=== PATIENT | female | born 1940 | race Caucasian/White ===

== ENCOUNTER 2018-03-06 16:52 | Emergency (ER) | payer OTHER ==
[~2018-03-06] VITALS: Ht 154.9 cm; Wt 58.1 kg
[~2018-03-06 16:52] MED LIST: COREG CR10 MG; NIFE60TA3
== END 2018-03-06 20:16 | disposition home or self-care (01) ==
LOC: ER 16:52
DX: S90.02XA Contusion of left ankle, initial encounter (principal); S80.02XA Contusion of left knee, initial encounter; S80.12XA Contusion of left lower leg, initial encounter; V49.9XXA Car occupant (driver) (passenger) injured in unspecified traffic accident, initial encounter; Y93.89 Activity, other specified; Y92.488 Other paved roadways as the place of occurrence of the external cause; Y99.8 Other external cause status

== ENCOUNTER 2018-08-19 15:39 | Outpatient (CLI) | payer OTHER | END 2018-08-19 16:00 | disposition home or self-care (01) | LOC: RAD 15:39 | DX: I50.22 Chronic systolic (congestive) heart failure (principal); I11.9 Hypertensive heart disease without heart failure ==

== ENCOUNTER 2018-09-24 10:48 | Emergency (ER) | payer OTHER ==
[~2018-09-24] VITALS: Ht 154.9 cm; Wt 56.7 kg
[2018-09-24] MEDS ORDERED: NORVASC2.5 M1 (11:33)
== END 2018-09-24 14:46 | disposition home or self-care (01) ==
LOC: ER 10:48 → CPU-OBS 11:06 → ER 14:46
DX: R07.89 Other chest pain (principal)
CPT/HCPCS: G0378; G0379; 93005

== ENCOUNTER → 2019-01-24 | Outpatient (CLI) | payer OTHER ==
[~2019-01-24] MED LIST changes: +NORVASC2.5 M1
== END | disposition home or self-care (01) ==
LOC: RAD 16:50
DX: J30.89 Other allergic rhinitis (principal)

== ENCOUNTER 2019-12-02 12:56 | Emergency (ER) | payer OTHER ==
[~2019-12-02] VITALS: Ht 154.9 cm; Wt 57.2 kg
[2019-12-02] MEDS ORDERED: LASIX20 MG PO (13:13)
[2019-12-02] MEDS ORDERED: CARVEDILOL ER10 MG PO (13:15)
== END 2019-12-02 21:34 | disposition home or self-care (01) ==
LOC: ER 12:56
DX: R41.3 Other amnesia (principal); R60.0 Localized edema; R53.81 Other malaise

== ENCOUNTER 2022-10-05 03:05 | Inpatient (IN) | payer OTHER ==
[~2022-10-05] VITALS: Ht 154.9 cm; Wt 58.1 kg
[~2022-10-05 03:05] MED LIST changes: +CARVEDILOL ER10 MG PO; +LASIX20 MG PO
--- NOTE | 2022-10-05 03:17 | NUR ---
PACIENTE ALERTA Y ORIENTADA X3. REFIERE VENIR POR DIFICULTAD RESPIRATORIA DESDE HACE DOS HORAS, EDEMA EN PIERNAS Y TOS SECA. SE RECIBE PACIENTE EN AMBULANCIA CON CANULA NASAL A 3 LITROS. SE UBICA EN AREA DE CRITICO PARA EVALUACION MEDICA.
--- NOTE | 2022-10-05 03:50 | NUR ---
SE RECIBE PTE FEMENINA ALERTA Y ORIENTADA EN LAS MARIEL ESFERAS EN AMBULANCIA EN COMPANIA DE PARAMEDICOS. SE UBICA PTE EN CAMA #3 DE UNIDAD DE CRITICO, SE CONECTA A MONITOR CARDIACO Y OXIMETRIA DE PULSO CONTINUA. EVALUADA POR ; SE ORIENTA SOBRE ORDENES DE TX REFIERE COMPRENDER. SE COLECTAN MUESTRAS DE LABORATORIOS Y SE CANALIZA VENA BAJO MEDIDAS ASEPTICAS. SE NOTIFICAN ABGS A STEFANY. SE REALIZA EKG Y SE PRESENTA A MD DE TURNO. SE NOTIFICAN XRAY PENDIENTE A PERSONAL DE RADIOLOGIA. SE REEMA COMODIDAD Y SE MANTIENE BAJO OBSERVACION POR CAMBIOS.
--- NOTE | 2022-10-05 07:24 | NUR ---
SE RECIBE PTE EN EL AREA DE CRITICO DE DEMETRA DE EMERFENCIA EN EL CUBICULO #2 EN CAMA CON BARANDAS ELEVADA Y TIMBRE ACCESIBLE, PTE ALERTA Y ORIENTADA POR 3 CONECTADA A MONITOR CARDIACO Y OXYMETRIA DE PULSO, SE OBSERVA VENOPUNCION PATENTE Y BRADLEY DE EDEMA, PTE CON JOINER DRENADO ORINADA DE COLOR AMARILLO PTE SE MANTIENE EN OBSERVACION Y BAJO TRATAMIENTO. SE OBSERVA RESPIRANDO CON CANULA @3LT.
--- NOTE | 2022-10-05 15:10 | NUR ---
PTE ALERTA Y ORIENTADO POR MARIEL ESFERAS CON BUEN PATRON RESPIRATORIO. ESTA CONECTADA AL MONITOR CARDIACO, NBP Y OXIMETRIA CONTINUA. TIENE CANALIZACION PATENTE BRADLEY DE EDEMA Y ERITEMA. TIENE JOINER A GRAVEDAD CON ORINA ANILILLA
--- NOTE | 2022-10-05 15:13 | NUR ---
PENDIENTE CONSULTA CON DR.MUNOZ OCHOA
[2022-10-06] MEDS ORDERED: CARVEDILOL25 M1 (15:19)
[2022-10-06] MEDS ORDERED: DILTIAZEM ER120 M2 (15:20)
[2022-10-15] MEDS ORDERED: LIPITOR20 MG PO (10:48)
[2022-10-15] MEDS ORDERED: BUMETANIDE1 MG PO (10:48)
[2022-10-15] MEDS ORDERED: ELIQUIS2.5 MG PO (10:48)
[2022-10-15] MEDS ORDERED: NORVASC2.5 M1 PO (10:48)
[2022-10-15] MEDS ORDERED: POTASSIUM20 MEQ/15 PO (10:48)
[2022-10-15] MEDS ORDERED: LISINOPRIL5 MG PO (10:48)
[2022-10-15] MEDS ORDERED: CARVEDILOL12.5 MG PO (10:48)
[2022-10-15] MEDS ORDERED: PROTEINEX-18 LI30 ML PO (10:48)
[2022-10-15] MEDS ORDERED: SPIRONOLACTONE25 MG PO (10:48)
== END 2022-10-15 18:02 | disposition home or self-care (01) | DRG 291 ==
LOC: ER 03:05 → MEDI 18:32
PROVIDERS: ADMIT Internal Medicine; ATTEND Internal Medicine
PROC: 4A12X4Z Monitoring of Cardiac Electrical Activity, External Approach (ICD-10-PCS; principal; 2022-10-05)
PROC: B24BYZZ Ultrasonography of Heart with Aorta using Other Contrast (ICD-10-PCS; 2022-10-05)
DX: I13.0 Hypertensive heart and chronic kidney disease with heart failure and stage 1 through stage 4 chronic kidney disease, or unspecified chronic kidney disease (principal); I50.23 Acute on chronic systolic (congestive) heart failure; I50.1 Left ventricular failure, unspecified; N17.9 Acute kidney failure, unspecified; N18.2 Chronic kidney disease, stage 2 (mild); I27.22 Pulmonary hypertension due to left heart disease; I34.0 Nonrheumatic mitral (valve) insufficiency; R60.1 Generalized edema; I48.91 Unspecified atrial fibrillation; E87.6 Hypokalemia; E83.42 Hypomagnesemia

== ENCOUNTER 2023-01-21 12:01 | Outpatient (CLI) | payer OTHER ==
[~2023-01-21 12:01] MED LIST changes: +BUMETANIDE1 MG PO; +CARVEDILOL12.5 MG PO; +CARVEDILOL25 M1; +DILTIAZEM ER120 M2; +ELIQUIS2.5 MG PO; +LIPITOR20 MG PO; +LISINOPRIL5 MG PO; +NORVASC2.5 M1 PO; +POTASSIUM20 MEQ/15 PO; +PROTEINEX-18 LI30 ML PO; +SPIRONOLACTONE25 MG PO
== END 2023-01-21 12:06 | disposition home or self-care (01) ==
LOC: NUCLEAR 12:01
PROVIDERS: ATTEND Internal Medicine
DX: I50.20 Unspecified systolic (congestive) heart failure (principal)

== ENCOUNTER 2024-04-06 13:24 | Outpatient (CLI) | payer OTHER | END 2024-04-06 13:34 | disposition home or self-care (01) | LOC: MRI 13:24 | PROVIDERS: ATTEND Psychiatry & Neurology Neurology | DX: G40.209 Localization-related (focal) (partial) symptomatic epilepsy and epileptic syndromes with complex partial seizures, not intractable, without status epilepticus (principal) | CPT/HCPCS: 70551 ==

== ENCOUNTER 2024-10-03 10:08 | Inpatient (IN) | payer OTHER ==
[~2024-10-03] VITALS: Ht 154.9 cm; Wt 61.7 kg
[2024-10-03] MEDS ORDERED: BENZONATATE100 MG PO (10:35)
--- NOTE | 2024-10-03 10:38 | NUR ---
PTE ACOMPANADA POR LA ESPOSA DE GRAMAJO VALERA QUIEN REFIERE TENER DIFICULTAD RESPIRATORIA Y TOS, SE NIRMAL SV Y SE UBICA.
[2024-10-03] MEDS ORDERED: LEVALBUTEROL HCL 1.25 MG/3 ML SOLUTION IH STA (11:27)
[2024-10-03] MEDS ORDERED: METHYLPREDNISOLONE SOD SUCC 125 MG VIAL IV STA (11:27)
[2024-10-03] MEDS ORDERED: BUDESONIDE 0.5 MG/2 ML AMPUL.NEB IH STA (11:28)
[2024-10-03] MEDS ORDERED: METHYLPREDNISOLONE SOD SUCC 125 MG VIAL ONE (11:50)
[2024-10-03 12:38] LABS: HEMATOCRIT 41.4 % (36.0-45.00); HEMOGLOBIN 13.2 g/dL (12.0-15.00); MEAN CELL VOLUME 78.8 fL (80.00-100.00); MEAN CORPUSCULAR HEMOGLOBIN 25.1 pg (27.00-32.0); MEAN CORPUSCULAR HGB CONC 31.9 g/dl (32.0-36.0); PLATELET COUNT 226 K/uL (150-450); RED BLOOD COUNT 5.26 M/uL (4.00-6.00); RED CELL DISTRIBUTION WIDTH 17.9 % (11.5-14.5)
--- NOTE | 2024-10-03 12:40 | NUR ---
SE ORIENTA A PACIENTE SOBRE TRATAMIENTO MEDICO Y EL MISMO REFIERE ENTENDER Y ACEPTAR. SE PROCEDE A EXTRAER MUESTRAS DE LUIS, CANALIZAR Y ADMINISTRAR MEDICAMENTO AL PACIENTE SERA ORDEN MEDICA BAJO MEDIDAS ASEPTICAS. PACIENTE REUSO A REALIZARSE LA PRUEBA DE INFLUENZA.
--- NOTE | 2024-10-03 13:35 | NUR ---
SE LE REALIZA EKG A LA PACIENTE Y EL MISMO ES EVALUADO POR EL DR. ZAMORA.
[2024-10-03] MEDS ORDERED: IPRATROPIUM BROMIDE 0.5 MG/2.5 ML AMPUL.NEB IH ONE (14:07)
[2024-10-03] MEDS ORDERED: LEVALBUTEROL HCL 0.63 MG/3 ML SOLUTION IH ONE (14:07)
[2024-10-03 14:24] LABS: PH,URINE 5.5 (5.0-8.0); URINE APPEARANCE Clear; URINE BILIRRUBIN Small (NEGATIVE); URINE BLOOD Negative; URINE COLOR Dark Yellow; URINE GLUCOSE Negative (NEGATIVE); URINE KETONE Negative (NEGATIVE); URINE LEUKOCYTE Trace; URINE NITRATE Negative
[2024-10-03 14:28] LABS: URINE BACTERIA 86.8 uL (0.0-1933); URINE CAST 4.41 uL (0.0-1.40); URINE EPITHELIAL CELLS 35.3 uL (0.0-38.8); URINE RBC 22.9 uL (0.0-20.8); URINE WBC 20.8 uL (0.0-23.2)
[2024-10-03 14:46] LABS: URINE CRYSTALS MODERATE /HPF; URINE MUCUS SCANT; URINE PROTEIN 100 (NEGATIVE)
[2024-10-03] MEDS ORDERED: 0.9 % SODIUM CHLORIDE 1,000 ML IV STA (15:50)
[2024-10-03 16:50] LABS: ABG PH 7.444 (7.35-7.45); ABG PO2 76.7 mmHg (80-100); ABG pCO2 44.2 mmHg (35-45); BASE EXCESS 4.8 mmol/l; BICARBONATE 29.7 mmol/l (23-25); SaO2 95.9 %
[2024-10-03 17:18] LABS: allen test SATISFACTORY; mode ROOM AIR; puncture site RADIAL RIGHT
[2024-10-03 17:19] LABS: o2 21 %
[2024-10-03] MEDS ORDERED: IPRATROPIUM BROMIDE 0.5 MG/2.5 ML AMPUL.NEB IH SCH ×2 (18:45→19:46)
[2024-10-03] MEDS ORDERED: LEVALBUTEROL HCL 1.25 MG/3 ML SOLUTION IH SCH (18:45)
[2024-10-03] MEDS ORDERED: GUAIFEN/DEXTROMETHORPHAN/PE 10 ML BLIST.PACK PO ONE ×2 (18:45→18:57)
[2024-10-03] MEDS ORDERED: ACETAMINOPHEN 500 MG GEL..CAP PO PRN ×2 (18:45→20:00)
[2024-10-03] MEDS ORDERED: FUROsemide 20 MG/2 ML VIAL IV ONE (18:45)
--- NOTE | 2024-10-03 19:03 | NUR ---
SE ADMINISTRAN MEDICAMENTOS SERA ORDEN MEDICA Y SE NOTIFICAN TERAPIAS RESP A MR RICE.
[2024-10-03] MEDS ORDERED: ATORVASTATIN CALCIUM 40 MG TABLET PO SCH (19:48)
[2024-10-03 19:56] LABS: INR 1.1; PARTIAL THROMBOPLASTIN TIME 24.4 SECONDS (22.0-34.0); PROTHROMBIN TIME 11.9 SECONDS (9.0-11.5)
[2024-10-03] MEDS ORDERED: BENZONATATE 100 MG CAPSULE PO SCH (20:00)
[2024-10-03 20:01] LABS: ALBUMIN 3.5 gm/dL (3.4-5.0); BILIRUBIN TOTAL 2.19 mg/dL (0.3-1.2); CALCIUM 9.8 mg/dL (8.5-10.1); CREATININE SERUM 1.05 mg/dL (0.55-1.02); GFR 50.05; GLOBULINA 4.5 G/DL (2.4-3.5); POTASSIUM 4.07 mEq/L (3.5-5.1)
[2024-10-03] MEDS ORDERED: FUROsemide 20 MG/2 ML VIAL IV SCH (21:00)
[2024-10-03] MEDS ORDERED: ENOXAPARIN SODIUM 60 MG/0.6 ML SYRINGE SUBCUTANEO SCH (21:00)
[2024-10-03 22:22] VITALS: BP 145/81; O2SAT 96
[2024-10-03] MEDS ORDERED: BENZONATATE 100 MG CAPSULE PO ONE (22:33)
[2024-10-03] MEDS ORDERED: ENOXAPARIN SODIUM 60 MG/0.6 ML SYRINGE SUBCUTANEO ONE (22:34)
[2024-10-03] MEDS ORDERED: FUROsemide 20 MG/2 ML VIAL ONE (22:34)
[2024-10-04] VITALS (8 sets, daily range): BP systolic 136–160; BP diastolic 78–97; O2SAT 90–98
[2024-10-04 06:07] LABS: CHOL HDL RATIO 2.1 (0-5.0); TSH 0.587 uIU/mL (0.358-3.74)
[2024-10-04] MEDS ORDERED: FAMOTIDINE/PF 20 MG in 0.9 % SODIUM CHLORIDE 8 ML IV PUSH SCH (09:00)
[2024-10-04] MEDS ORDERED: CARVEDILOL 12.5 MG TABLET PO SCH (09:00)
[2024-10-04] MEDS ORDERED: METOPROLOL SUCCINATE 25 MG TAB.SR.24H PO SCH (09:00)
[2024-10-05] VITALS (7 sets, daily range): BP systolic 111–137; BP diastolic 66–85; O2SAT 20–100
[2024-10-05 06:49] LABS: HEMATOCRIT 39.1 % (36.0-45.00); HEMOGLOBIN 12.5 g/dL (12.0-15.00); MEAN CELL VOLUME 79.6 fL (80.00-100.00); MEAN CORPUSCULAR HEMOGLOBIN 25.4 pg (27.00-32.0); PLATELET COUNT 224 K/uL (150-450); RED BLOOD COUNT 4.92 M/uL (4.00-6.00); RED CELL DISTRIBUTION WIDTH 17.6 % (11.5-14.5)
[2024-10-05 07:28] LABS: ALBUMIN 2.8 gm/dL (3.4-5.0); BILIRUBIN TOTAL 1.44 mg/dL (0.3-1.2); BILIRUBIN,CONJUGATED 0.88 mg/dL (0.0-0.2); BILIRUBIN,UNCONJUGATED 0.56 mg/dL (0.0-0.6); TOTAL PROTEIN 6.3 gm/dL (6.4-8.2)
[2024-10-05] MEDS ORDERED: ASPIRIN 325 MG TABLET PO SCH (09:00)
[2024-10-06 01:18] VITALS: O2SAT 95
[2024-10-06 02:27] VITALS: BP 121/77; O2SAT 94
[2024-10-06 05:28] VITALS: O2SAT 98
[2024-10-06 09:00] VITALS: BP 139/67; O2SAT 97
[2024-10-06] MEDS ORDERED: IPRATROPIUM BROMIDE 0.5 MG/2.5 ML AMPUL.NEB IH SCH (09:00)
[2024-10-06] MEDS ORDERED: PIPERACILLIN/TAZOBACTAM SODIUM 4.5 GM in 0.9 % SODIUM CHLORIDE 100 ML IV SCH (12:00)
[2024-10-06 18:48] VITALS: BP 120/77
[2024-10-07 03:17] VITALS: BP 120/60; O2SAT 97
[2024-10-07] MEDS ORDERED: FAMOtidine 20 MG TABLET PO SCH (09:00)
[2024-10-07 19:20] VITALS: BP 124/79
[2024-10-07 19:21] VITALS: BP 124/79
[2024-10-08 02:15] VITALS: BP 127/69; O2SAT 98
[2024-10-08 09:21] VITALS: BP 133/84
[2024-10-08 17:33] VITALS: BP 123/79
[2024-10-09 01:06] VITALS: BP 119/76; O2SAT 98
[2024-10-09 07:26] LABS: ALBUMIN 2.5 gm/dL (3.4-5.0); BILIRUBIN TOTAL 0.97 mg/dL (0.3-1.2); CALCIUM 8.2 mg/dL (8.5-10.1); CREATININE SERUM 0.89 mg/dL (0.55-1.02); GFR 60.57; GLOBULINA 3.2 G/DL (2.4-3.5); POTASSIUM 3.35 mEq/L (3.5-5.1); TOTAL PROTEIN 5.7 gm/dL (6.4-8.2)
[2024-10-09] MEDS ORDERED: EMPAGLIFLOZIN 10 MG TABLET PO SCH (09:00)
[2024-10-09] MEDS ORDERED: GUAIFENESIN 200 MG/10 ML BLIST.PACK PO SCH (09:00)
[2024-10-09 09:20] VITALS: BP 120/82
[2024-10-09 18:42] VITALS: BP 113/73
[2024-10-10 01:50] VITALS: BP 117/66
[2024-10-10 10:19] VITALS: BP 134/57; O2SAT 100
== END 2024-10-10 16:09 | disposition home or self-care (01) | DRG 308 ==
LOC: ER 10:09 → SEC-K 21:35 → MEDJ 21:35
PROVIDERS: General Practice; Internal Medicine; ADMIT Internal Medicine; ATTEND Internal Medicine
PROC: BW28ZZZ Computerized Tomography (CT Scan) of Head (ICD-10-PCS; principal; 2024-10-03)
PROC: B030ZZZ Magnetic Resonance Imaging (MRI) of Brain (ICD-10-PCS; 2024-10-03)
PROC: B345ZZZ Ultrasonography of Bilateral Common Carotid Arteries (ICD-10-PCS; 2024-10-03)
PROC: B246ZZZ Ultrasonography of Right and Left Heart (ICD-10-PCS; 2024-10-03)
PROC: 3E0F7GC Introduction of Other Therapeutic Substance into Respiratory Tract, Via Natural or Artificial Opening (ICD-10-PCS; 2024-10-04)
PROC: 4A12X4Z Monitoring of Cardiac Electrical Activity, External Approach (ICD-10-PCS; 2024-10-04)
DX: I48.0 Paroxysmal atrial fibrillation (principal); I50.23 Acute on chronic systolic (congestive) heart failure; J18.9 Pneumonia, unspecified organism; N17.8 Other acute kidney failure; J90 Pleural effusion, not elsewhere classified; I11.0 Hypertensive heart disease with heart failure; R13.0 Aphagia
CPT/HCPCS: 70544

== ENCOUNTER 2024-10-27 09:01 | Inpatient (IN) | payer OTHER ==
[~2024-10-27] VITALS: Ht 152.4 cm; Wt 60.3 kg
[~2024-10-27 09:01] MED LIST changes: +BENZONATATE100 MG PO
--- NOTE | 2024-10-27 09:19 | NUR ---
PTE ALERTA Y ORIENTADO X3 REFIERE TENER DIFICULTAD RESPIRATORIA MAS TOS, SE NIRMAL SV Y SE UBICA.
--- NOTE | 2024-10-27 10:37 | NUR ---
SE REALIZA LAB SERA ORDEN MEDICA BAJO MEDIDAS ASEPTICAS. SE ORIENTA PTE QUIEN REFIERE ENTENDER Y ACEPTAR
[2024-10-27 10:56] LABS: BASO % 0.4 % (0.1-1.2); EOS # 0.17 (0.04-0.54); EOS % 2.5 % (0.7-7.0); HEMATOCRIT 38.9 % (34.1-44.9); HEMOGLOBIN 12.5 g/dL (11.2-15.7); LYMPH # 0.88 (1.18-3.74); MEAN CORPUSCULAR HEMOGLOBIN 25.5 pg (25.6-32.2); MONO # 0.76 (0.24-0.82); MONO % 11.3 % (4.7-12.5); NEUT # 4.88 (1.56-6.13); NEUT % 72.4 % (34.0-71.1); PLATELET COUNT 292 K/uL (163-369); RED BLOOD COUNT 4.91 M/uL (3.93-5.22); RED CELL DISTRIBUTION WIDTH 21.2 % (11.6-14.4)
[2024-10-27 11:23] LABS: CALCIUM 9.1 mg/dL (8.5-10.1); CREATININE SERUM 1.03 mg/dL (0.55-1.02); GFR 51.17; POTASSIUM 5.26 mEq/L (3.5-5.1)
[2024-10-27] MEDS ORDERED: FUROsemide 20 MG TABLET PO STA (11:42)
[2024-10-27] MEDS ORDERED: FUROsemide 20 MG TABLET PO ONE (12:28)
--- NOTE | 2024-10-27 15:49 | NUR ---
SE RECIBE PACIENTE ALERTA Y ORIENTADA X3, ACOSTADA EN POSICION SUPINA CON BARANDAS ELEVADAS X4 DE SEGURIDAD. LA MISMA CANALIZADA CON #22 Y HEPARIN LOCK BRADLEY DE EDEMA Y ERITEMA. CONECTADA A MONITOREO CARDIACO Y OXIMETRIA DE PULSO.
[2024-10-27] MEDS ORDERED: FUROsemide 20 MG/2 ML VIAL IV SCH (20:31)
[2024-10-27] MEDS ORDERED: ISOSORBIDE MONONITRATE 60 MG TABLET PO SCH (20:32)
[2024-10-27] MEDS ORDERED: FAMOTIDINE/PF 20 MG in 0.9 % SODIUM CHLORIDE 8 ML IV PUSH SCH (20:32)
[2024-10-27] MEDS ORDERED: IPRATROPIUM BROMIDE 0.5 MG/2.5 ML AMPUL.NEB IH SCH (20:34)
[2024-10-27] MEDS ORDERED: ACETAMINOPHEN 500 MG GEL..CAP PO PRN ×2 (20:45)
[2024-10-27] MEDS ORDERED: AMIODARONE HCL 50 MG/ML AMPUL IV ONE (20:45)
[2024-10-27] MEDS ORDERED: ENOXAPARIN SODIUM 60 MG/0.6 ML SYRINGE SUBCUTANEO SCH (21:00)
[2024-10-27] MEDS ORDERED: FAMOTIDINE/PF 20 MG/2 ML VIAL ONE (23:40)
[2024-10-27] MEDS ORDERED: FUROsemide 20 MG/2 ML VIAL ONE (23:40)
[2024-10-27] MEDS ORDERED: ENOXAPARIN SODIUM 60 MG/0.6 ML SYRINGE SUBCUTANEO ONE (23:40)
[2024-10-28] VITALS (17 sets, daily range): BP systolic 106–147; BP diastolic 68–95; O2SAT 96–100
[2024-10-28 00:27] LABS: INR 1.09; PARTIAL THROMBOPLASTIN TIME 24.8 SECONDS (22.0-34.0); PROTHROMBIN TIME 11.8 SECONDS (9.0-11.5)
[2024-10-28 01:46] LABS: URINE APPEARANCE Clear; URINE BILIRRUBIN Negative (NEGATIVE); URINE BLOOD Trace; URINE COLOR Yellow; URINE KETONE Negative (NEGATIVE); URINE LEUKOCYTE Negative; URINE NITRATE Negative; URINE PROTEIN Negative (NEGATIVE)
[2024-10-28 01:47] LABS: URINE BACTERIA 29.3 uL (0.0-1933); URINE CAST 1.47 uL (0.0-1.40); URINE EPITHELIAL CELLS 2.8 uL (0.0-38.8); URINE WBC 8.2 uL (0.0-23.2)
[2024-10-28 01:49] LABS: URINE GLUCOSE 500 MG/DL (NEGATIVE)
[2024-10-28] MEDS ORDERED: ENOXAPARIN SODIUM 60 MG/0.6 ML SYRINGE SUBCUTANEO ONE (08:31)
[2024-10-28] MEDS ORDERED: FAMOTIDINE/PF 20 MG/2 ML VIAL ONE (08:31)
[2024-10-28] MEDS ORDERED: FUROsemide 20 MG/2 ML VIAL ONE (08:31)
[2024-10-28] MEDS ORDERED: AMIODARONE HCL 900 MG in DEXTROSE 5 % IN WATER 500 ML IV SCH (08:45)
[2024-10-28] MEDS ORDERED: ATORVASTATIN CALCIUM 40 MG TABLET PO SCH (09:00)
[2024-10-29] VITALS (8 sets, daily range): BP systolic 109–122; BP diastolic 78–87; O2SAT 94–99
[2024-10-29] MEDS ORDERED: AMIODARONE HCL 200 MG TABLET PO SCH (09:00)
[2024-10-30 01:35] VITALS: O2SAT 99
[2024-10-30 01:53] VITALS: BP 136/78; O2SAT 98
[2024-10-30 01:54] VITALS: BP 109/61; O2SAT 97
[2024-10-30 05:35] VITALS: O2SAT 98
[2024-10-30 07:53] LABS: BASO % 0.7 % (0.1-1.2); EOS # 0.32 (0.04-0.54); EOS % 4.2 % (0.7-7.0); HEMATOCRIT 38.4 % (34.1-44.9); HEMOGLOBIN 12.4 g/dL (11.2-15.7); LYMPH # 0.55 (1.18-3.74); LYMPH % 7.3 % (19.3-53.1); MEAN CORPUSCULAR HEMOGLOBIN 25.1 pg (25.6-32.2); MONO # 0.88 (0.24-0.82); MONO % 11.6 % (4.7-12.5); NEUT # 5.72 (1.56-6.13); NEUT % 75.4 % (34.0-71.1); PLATELET COUNT 277 K/uL (163-369); RED BLOOD COUNT 4.95 M/uL (3.93-5.22); RED CELL DISTRIBUTION WIDTH 21.1 % (11.6-14.4)
[2024-10-30 08:14] LABS: ALBUMIN 2.3 gm/dL (3.4-5.0); CALCIUM 7.9 mg/dL (8.5-10.1); CREATININE SERUM 0.84 mg/dL (0.55-1.02); GFR 64.75; PHOSPHOROUS 2.9 mg/dL (2.5-4.9); POTASSIUM 3.91 mEq/L (3.5-5.1)
[2024-10-30] MEDS ORDERED: KETOROLAC TROMETHAMINE 30 MG VIAL IV STA (08:23)
[2024-10-30 09:13] VITALS: BP 106/64; O2SAT 95
[2024-10-30] MEDS ORDERED: KETOROLAC TROMETHAMINE 30 MG VIAL ONE (09:37)
[2024-10-30 16:54] VITALS: BP 114/75; O2SAT 95
[2024-10-31 00:57] VITALS: BP 113/72
[2024-10-31 09:17] VITALS: BP 116/74; O2SAT 96
[2024-10-31 18:27] VITALS: BP 128/89; O2SAT 97
[2024-10-31] MEDS ORDERED: FUROsemide 20 MG/2 ML VIAL IV SCH ×2 (21:00)
[2024-11-01 02:03] VITALS: BP 138/78; O2SAT 94
[2024-11-01 09:00] VITALS: BP 150/60; O2SAT 97
[2024-11-01] MEDS ORDERED: FAMOtidine 20 MG TABLET PO SCH (09:00)
[2024-11-01 09:03] VITALS: BP 116/76; O2SAT 98
[2024-11-01 17:52] VITALS: BP 118/73; O2SAT 98
[2024-11-02 02:12] VITALS: BP 125/60; O2SAT 92
[2024-11-02 07:49] VITALS: BP 143/92; O2SAT 96
[2024-11-02 16:37] VITALS: BP 117/69; O2SAT 100
[2024-11-02 17:56] LABS: BASO % 0.4 % (0.1-1.2); EOS # 0.08 (0.04-0.54); EOS % 0.8 % (0.7-7.0); HEMATOCRIT 40.1 % (34.1-44.9); HEMOGLOBIN 12.7 g/dL (11.2-15.7); LYMPH # 0.82 (1.18-3.74); LYMPH % 7.8 % (19.3-53.1); MEAN CORPUSCULAR HEMOGLOBIN 24.8 pg (25.6-32.2); MONO # 0.86 (0.24-0.82); MONO % 8.2 % (4.7-12.5); NEUT # 8.69 (1.56-6.13); NEUT % 82.5 % (34.0-71.1); PLATELET COUNT 297 K/uL (163-369); RED BLOOD COUNT 5.13 M/uL (3.93-5.22); RED CELL DISTRIBUTION WIDTH 20.9 % (11.6-14.4)
[2024-11-02 20:04] LABS: PH,URINE 7.5 (5.0-8.0); URINE APPEARANCE Cloudy; URINE BILIRRUBIN Negative (NEGATIVE); URINE BLOOD Large; URINE COLOR Yellow; URINE GLUCOSE Negative (NEGATIVE); URINE KETONE Negative (NEGATIVE); URINE LEUKOCYTE Large; URINE NITRATE Positive; URINE PROTEIN Trace (NEGATIVE)
[2024-11-02 20:06] LABS: URINE BACTERIA > 9821.5 uL (0.0-1933); URINE CAST 1.03 uL (0.0-1.40); URINE EPITHELIAL CELLS 2.5 uL (0.0-38.8); URINE RBC 865.1 uL (0.0-20.8); URINE WBC 937.6 uL (0.0-23.2)
[2024-11-02] MEDS ORDERED: APIXABAN 5 MG TABLET PO SCH (21:59)
[2024-11-03 02:22] VITALS: BP 123/81; O2SAT 96
[2024-11-03 08:34] VITALS: BP 141/82; O2SAT 90
[2024-11-03] MEDS ORDERED: METOPROLOL SUCCINATE 25 MG TAB.SR.24H PO SCH (09:00)
[2024-11-03] MEDS ORDERED: LOSARTAN POTASSIUM 25 MG TABLET PO SCH (09:00)
[2024-11-03] MEDS ORDERED: PATIENTS OWN MEDICATION (MEDICAMENTO EN PISO) PO SCH (09:00)
[2024-11-03] MEDS ORDERED: CEFTRIAXONE SODIUM 1,000 MG VIAL IV SCH (09:00)
[2024-11-03] MEDS ORDERED: POLYETHYLENE GLYCOL 3350 17 GM BLIST.PACK PO SCH (12:00)
[2024-11-03 17:57] VITALS: BP 137/88; O2SAT 98
[2024-11-04 02:08] VITALS: BP 109/68; O2SAT 94
[2024-11-04 09:44] VITALS: BP 130/83; O2SAT 95
[2024-11-04 17:44] VITALS: BP 115/80
[2024-11-05 02:02] VITALS: BP 116/70; O2SAT 98
[2024-11-05 09:25] VITALS: BP 124/84; O2SAT 95
[2024-11-05] MEDS ORDERED: MEROPENEM 500 MG/VIAL VIAL IV SCH (17:00)
[2024-11-05 18:30] VITALS: BP 112/81
[2024-11-05] MEDS ORDERED: CEFEPIME HCL 2,000 MG in 0.9 % SODIUM CHLORIDE 100 ML IV SCH (21:00)
[2024-11-06 01:19] VITALS: BP 120/70; O2SAT 95
[2024-11-06 08:43] LABS: BASO % 1.2 % (0.1-1.2); EOS # 0.19 (0.04-0.54); EOS % 2.9 % (0.7-7.0); HEMATOCRIT 41.5 % (34.1-44.9); HEMOGLOBIN 13.1 g/dL (11.2-15.7); LYMPH # 1.07 (1.18-3.74); LYMPH % 16.1 % (19.3-53.1); MEAN CORPUSCULAR HEMOGLOBIN 24.4 pg (25.6-32.2); MONO # 0.82 (0.24-0.82); NEUT # 4.44 (1.56-6.13); NEUT % 66.9 % (34.0-71.1); PLATELET COUNT 249 K/uL (163-369); RED BLOOD COUNT 5.36 M/uL (3.93-5.22); RED CELL DISTRIBUTION WIDTH 21.2 % (11.6-14.4)
[2024-11-06 08:59] LABS: MONO % 12.3 % (4.7-12.5)
[2024-11-06 09:18] LABS: CALCIUM 9.2 mg/dL (8.5-10.1); CREATININE SERUM 0.97 mg/dL (0.55-1.02); GFR 54.84; POTASSIUM 4.71 mEq/L (3.5-5.1)
[2024-11-06 09:23] VITALS: BP 132/73; O2SAT 97
[2024-11-06 18:45] VITALS: BP 114/73
[2024-11-07 01:37] VITALS: BP 107/66; O2SAT 98
[2024-11-07 09:39] VITALS: BP 101/61; O2SAT 95
[2024-11-07 17:22] VITALS: BP 126/73; O2SAT 98
[2024-11-08 03:02] VITALS: BP 106/64; O2SAT 97
[2024-11-08 07:51] LABS: BASO % 1.3 % (0.1-1.2); EOS # 0.18 (0.04-0.54); EOS % 3.2 % (0.7-7.0); HEMATOCRIT 39.5 % (34.1-44.9); HEMOGLOBIN 12.4 g/dL (11.2-15.7); LYMPH # 0.95 (1.18-3.74); LYMPH % 17.1 % (19.3-53.1); MEAN CORPUSCULAR HEMOGLOBIN 24.6 pg (25.6-32.2); MONO # 0.77 (0.24-0.82); NEUT # 3.56 (1.56-6.13); NEUT % 63.9 % (34.0-71.1); PLATELET COUNT 221 K/uL (163-369); RED BLOOD COUNT 5.04 M/uL (3.93-5.22); RED CELL DISTRIBUTION WIDTH 21.2 % (11.6-14.4)
[2024-11-08 08:06] LABS: MONO % 13.8 % (4.7-12.5)
[2024-11-08 08:17] VITALS: BP 122/79; O2SAT 92
[2024-11-08 12:46] LABS: ALBUMIN 2.5 gm/dL (3.4-5.0); BILIRUBIN TOTAL 0.94 mg/dL (0.3-1.2); CALCIUM 9.1 mg/dL (8.5-10.1); CREATININE SERUM 0.88 mg/dL (0.55-1.02); GFR 61.37; GLOBULINA 3.9 G/DL (2.4-3.5); POTASSIUM 4.96 mEq/L (3.5-5.1); TOTAL PROTEIN 6.4 gm/dL (6.4-8.2)
[2024-11-08 17:16] VITALS: BP 135/80; O2SAT 100
[2024-11-09 02:30] VITALS: BP 123/82; O2SAT 97
[2024-11-09 08:48] VITALS: BP 114/76; O2SAT 97
[2024-11-09 17:36] VITALS: BP 129/86; O2SAT 97
[2024-11-10 01:07] VITALS: BP 138/72; O2SAT 98
[2024-11-10 09:53] VITALS: BP 100/60; O2SAT 97
[2024-11-10 18:47] VITALS: BP 108/69; O2SAT 96
[2024-11-11 01:24] VITALS: BP 125/70; O2SAT 95
[2024-11-11 10:15] VITALS: BP 126/90; O2SAT 98
[2024-11-11 17:05] VITALS: BP 126/84
[2024-11-12 01:25] VITALS: BP 137/79; O2SAT 95
[2024-11-12 10:02] VITALS: BP 104/63; O2SAT 99
== END 2024-11-12 15:36 | disposition home or self-care (01) | DRG 292 ==
LOC: ER 09:01 → ICU-2 10-28 00:43 → MEDJ 10-28 15:31
PROVIDERS: General Practice; Internal Medicine; Student in an Organized Health Care Education/Training Program; ADMIT Internal Medicine; ATTEND Internal Medicine
PROC: B24BZZZ Ultrasonography of Heart with Aorta (ICD-10-PCS; 2024-10-27)
PROC: 4A12X4Z Monitoring of Cardiac Electrical Activity, External Approach (ICD-10-PCS; principal; 2024-10-28)
PROC: 8E0ZXY6 Isolation (ICD-10-PCS; 2024-11-06)
DX: I11.0 Hypertensive heart disease with heart failure (principal); I48.20 Chronic atrial fibrillation, unspecified; N39.0 Urinary tract infection, site not specified; Z16.12 Extended spectrum beta lactamase (ESBL) resistance; I50.20 Unspecified systolic (congestive) heart failure; I34.0 Nonrheumatic mitral (valve) insufficiency; B96.20 Unspecified Escherichia coli [E. coli] as the cause of diseases classified elsewhere

== ENCOUNTER 2024-11-29 21:21 | Inpatient (IN) | payer OTHER ==
[~2024-11-29] VITALS: Ht 154.9 cm; Wt 562.5 kg
[2024-11-29] MEDS ORDERED: LASIX20 MG (21:58)
[2024-11-29] MEDS ORDERED: ELIQUIS5 MG (21:58)
[2024-11-29] MEDS ORDERED: AMIODARONE HCL100 MG (21:59)
[2024-11-29] MEDS ORDERED: ENTRESTO 24 MG1 EACH (21:59)
--- NOTE | 2024-11-29 21:59 | NUR ---
PTE ALERTA Y ORIENTADA X3 VERBALIZA QUE TIENE SHYANNE TOS HACE UN MES SE LE NIRMAL S/V Y SE UBICA.
[2024-11-30] MEDS ORDERED: GUAIFENESIN 200 MG/10 ML BLIST.PACK PO STA (00:40)
[2024-11-30] MEDS ORDERED: GUAIFENESIN 200 MG/10 ML BLIST.PACK PO ONE ×2 (00:40→20:05)
--- NOTE | 2024-11-30 01:07 | NUR ---
SE EDUCA A PTE SOBRE TX MEDICO, SE NIRMAL MUESTRAS DE LABORATORIO EN LUIS UTILIZANDO MEDIDAS ASEPTICAS. SE COLOCA H/L BRADLEY DE EDEMA. SE ADMINISTRAN MEDICAMENTOS SERA ORDEN MEDICA. SE NOTIFICAN ABGS Y RX PENDIENTES A RELIZAR. PTE SE UBICA EN UNIDAD DE CRITICO SERA ORDEN MEDICA. PTE SE CONECTA A MONITOR CARDIACO CON OXIMETRIA CONTINUA. SE REALIZA EKG A PTE Y SE PRESENTA A MD.
[2024-11-30 01:40] LABS: ABG PH 7.437 (7.35-7.45); ABG PO2 73.3 mmHg (80-100); BICARBONATE 26.2 mmol/l (23-25)
[2024-11-30 01:41] LABS: o2 21 %
--- NOTE | 2024-11-30 01:44 | NUR ---
PACIENTE CON ORDEN MEDICA DE COVID-19 ANTIGEN MAS INFLUENZA RAPID TEST. LA PACIENTE REHUSA LA OK DE [place], SE LE ORIENTA SOBRE LA IMPORTANCIA DE L[place] MISMAS.
[2024-11-30 01:57] LABS: INR 1.05
[2024-11-30 02:05] LABS: BASO % 0.9 % (0.1-1.2); EOS # 0.10 (0.04-0.54); EOS % 1.8 % (0.7-7.0); LYMPH # 0.98 (1.18-3.74); LYMPH % 17.3 % (19.3-53.1); MEAN PLATELET VOLUME 11.90 fl (9.4-12.4); MONO # 0.59 (0.24-0.82); MONO % 10.4 % (4.7-12.5); NEUT # 3.93 (1.56-6.13); NEUT % 69.2 % (34.0-71.1); RED CELL DISTRIBUTION WIDTH 23.7 % (11.6-14.4)
[2024-11-30 02:33] LABS: ALT/SGPT 17.0 U/L (12-78); AST/SGOT 22.0 U/L (15-37); BILIRUBIN TOTAL 1.41 mg/dL (0.3-1.2); BUN CREA RATIO 18.0 (7.0-25.0); CREATININE SERUM 1.29 mg/dL (0.55-1.02); GFR 39.47; GLOBULINA 4.2 G/DL (2.4-3.5); GLUCOSE FASTING 101.0 mg/dL (65-100); OSMOLALITY SERUM 291.0 MOSM/KG (275-295)
[2024-11-30] MEDS ORDERED: LEVALBUTEROL HCL 1.25 MG/3 ML SOLUTION IH ONE (05:25)
[2024-11-30] MEDS ORDERED: LEVALBUTEROL HCL 1.25 MG/3 ML SOLUTION IH STA (05:34)
--- NOTE | 2024-11-30 07:22 | NUR ---
SE RECIBE PTE DE TURNO ANTERIOR POR RN ANGELA. PTE EN CAMA EN POSICION SEMI SENTADA CONECTADA A MONITOR CARDIACO Y OXIMETRIA. PTE CON CANULA NASAL A 1 LT. PTE CANALIZDA EN BRAZO IZQ Y DERECHO, AMBAS CANALIZACIONES LIBRES DE EDEMA Y ENROJECIMIENTO. PTE CON ABDOMEN BLANDO AL TACTO Y PERISTALSIS PRESENTE. PTE CON JOINER BAJANDO ORINA A GRAVEDAD COLOR AMARILLENTA HALEIGH. NO SE OBSERVA EDEMA EN EXTREMIDADES INFERIORES. AL MOMENTO PTE SE ENCUENTRA DURMIENDO. PTE EN CONSULTA CON DR. BOSE. SE MANTIENE BAJO OBSERVACION POR CAMBIO.
--- NOTE | 2024-11-30 15:14 | NUR ---
SE RECIBE PTE ALERTA Y ORIENTADA X3 EN CAMA #1 EN LA UNIDAD DE CRITICO CON BARANDAS ELEVADAS Y FRENOS POR SEGURIDAD. SE OBSERVA PTE CON BUEN PATRON RESPIRATORIO, ASISTIDA CON CANULA NASAL A 3 LT/MIN, CONECTADA A MONITOR CARDIACO Y OXIMETRIA DE PULSO CONTINUA PRESENTANDO SIGNOS VITALES YA REPORTADOS EN SISTEMA; CANALIZADA EN AMBAS CHIVO CON ANGIOS #20 Y #22, LOS CUALES ESTAN PATENTES, LIBRES DE EDEMA, ERITEMA O PROCESOS DE INFECCION Y EN H/L. ABDOMEN BLANDO Y DEPREIBLE AL TACTO, JOINER CATHETER INSERTADO Y PATENTE, EGRESANDO ORINA AMARILLO MARY SIN SEDIMENTOS AL MOMENTO. EXTREMIDADES INFERIORES LIBRES DE HALLAZGO RELEVANTE. SE MANTIENE BAJO OBSERVACION POR CAMBIOS SIGNIFICATIVOS. PENDIENTE CONSULTA CON MEDICINA INTERNA Y MUESTRAS DE COVID E INFLUENZA LAS CUALES PTE REHUSA QUE SE TOMEN, INCLUSO DESPUES DE ORIENTARLA SOBRE LA IMPORTANCIA DE LAS MISMAS, PTE CAPAZ, COOPERADORA, ALERTA Y ORIENTADA X3, SE RESPETA DECISION.
[2024-11-30] MEDS ORDERED: IPRATROPIUM BROMIDE 0.5 MG/2.5 ML AMPUL.NEB IH SCH (17:23)
[2024-11-30] MEDS ORDERED: PATIENTS OWN MEDICATION (MEDICAMENTO EN PISO) PO SCH (17:26)
[2024-11-30] MEDS ORDERED: AMIODARONE HCL 200 MG TABLET PO SCH (17:27)
[2024-11-30] MEDS ORDERED: APIXABAN 5 MG TABLET PO SCH (17:27)
[2024-11-30] MEDS ORDERED: ACETAMINOPHEN 500 MG GEL..CAP PO PRN (17:30)
[2024-11-30 17:44] VITALS: BP 117/74; O2SAT 99
[2024-11-30 18:15] LABS: URINE APPEARANCE Clear; URINE BILIRRUBIN Negative (NEGATIVE); URINE BLOOD Large; URINE COLOR Yellow; URINE GLUCOSE Negative (NEGATIVE); URINE KETONE Negative (NEGATIVE); URINE LEUKOCYTE Moderate; URINE NITRATE Negative; URINE PROTEIN Negative (NEGATIVE); URINE UROBILINOGEN 1.0 E.U./dl
[2024-11-30 18:19] LABS: URINE BACTERIA 51.3 uL (0.0-1933); URINE EPITHELIAL CELLS 3.6 uL (0.0-38.8); URINE RBC 500.3 uL (0.0-20.8); URINE WBC 96.2 uL (0.0-23.2)
[2024-11-30 18:25] LABS: URINE CAST 0.29 uL (0.0-1.40)
[2024-11-30 19:00] VITALS: BP 96/62; O2SAT 99
[2024-11-30 20:00] VITALS: BP 79/51; O2SAT 96
[2024-11-30] MEDS ORDERED: BENZONATATE 100 MG CAPSULE PO SCH (20:03)
[2024-11-30] MEDS ORDERED: BENZONATATE 100 MG CAPSULE PO ONE (20:03)
[2024-11-30] MEDS ORDERED: GUAIFENESIN 200 MG/10 ML BLIST.PACK PO SCH (20:13)
[2024-11-30 21:00] VITALS: BP 93/55; O2SAT 99
[2024-11-30 21:57] VITALS: BP 98/57; O2SAT 99
[2024-11-30 23:20] VITALS: BP 104/67; O2SAT 99
[2024-12-01] VITALS (8 sets, daily range): BP systolic 93–125; BP diastolic 53–86; O2SAT 90–100
[2024-12-02] VITALS (9 sets, daily range): BP systolic 102–109; BP diastolic 59–65; O2SAT 91–97
[2024-12-03] VITALS (9 sets, daily range): BP systolic 90–120; BP diastolic 55–76; O2SAT 90–98
[2024-12-03 08:12] LABS: BASO % 0.7 % (0.1-1.2); EOS # 0.16 (0.04-0.54); EOS % 2.0 % (0.7-7.0); LYMPH # 0.84 (1.18-3.74); LYMPH % 10.3 % (19.3-53.1); MEAN PLATELET VOLUME 11.70 fl (9.4-12.4); MONO # 1.08 (0.24-0.82); NEUT # 5.99 (1.56-6.13); NEUT % 73.3 % (34.0-71.1); RED CELL DISTRIBUTION WIDTH 23.5 % (11.6-14.4)
[2024-12-03 08:14] LABS: MONO % 13.2 % (4.7-12.5)
[2024-12-03 14:31] LABS: BUN CREA RATIO 23.0 (7.0-25.0); CREATININE SERUM 0.92 mg/dL (0.55-1.02); GFR 58.3; GLUCOSE FASTING 103.0 mg/dL (65-100); OSMOLALITY SERUM 281.0 MOSM/KG (275-295)
[2024-12-04] VITALS (10 sets, daily range): BP systolic 96–122; BP diastolic 56–76; O2SAT 91–99
[2024-12-04] MEDS ORDERED: SODIUM CHLORIDE FOR INHALATION 1 VIAL.NEB IH SCH (09:00)
[2024-12-04 18:44] LABS: BUN CREA RATIO 20.0 (7.0-25.0); CREATININE SERUM 1.04 mg/dL (0.55-1.02); GFR 50.61; GLUCOSE FASTING 106.0 mg/dL (65-100); OSMOLALITY SERUM 281.0 MOSM/KG (275-295)
[2024-12-05 01:12] VITALS: O2SAT 90
[2024-12-05 05:04] VITALS: O2SAT 97
[2024-12-05 09:15] VITALS: O2SAT 99
[2024-12-05 09:33] VITALS: BP 129/70
[2024-12-05 14:14] VITALS: O2SAT 96
== END 2024-12-05 17:24 | disposition home or self-care (01) | DRG 291 ==
LOC: ER 21:42 → ICU 11-30 17:57 → ICU-2 11-30 17:57 → ICU 12-01 03:07 → MEDI 12-01 21:27
PROVIDERS: General Practice; Internal Medicine Nephrology; Student in an Organized Health Care Education/Training Program; ADMIT Internal Medicine; ATTEND Internal Medicine
PROC: B24BZZZ Ultrasonography of Heart with Aorta (ICD-10-PCS; 2024-11-30)
PROC: 4A12X4Z Monitoring of Cardiac Electrical Activity, External Approach (ICD-10-PCS; principal; 2024-12-01)
DX: I11.0 Hypertensive heart disease with heart failure (principal); I50.33 Acute on chronic diastolic (congestive) heart failure; N17.9 Acute kidney failure, unspecified; I48.91 Unspecified atrial fibrillation; I25.5 Ischemic cardiomyopathy; Z79.01 Long term (current) use of anticoagulants; I34.0 Nonrheumatic mitral (valve) insufficiency

== ENCOUNTER 2025-04-22 13:08 | Inpatient (IN) | payer OTHER ==
[~2025-04-22] VITALS: Ht 162.6 cm; Wt 90.7 kg
[~2025-04-22 13:08] MED LIST changes: +AMIODARONE HCL100 MG; +ELIQUIS5 MG; +ENTRESTO 24 MG1 EACH; +LASIX20 MG
[2025-04-22] MEDS ORDERED: FAMOTIDINE/PF 20 MG/2 ML VIAL IV STA (13:27)
[2025-04-22] MEDS ORDERED: 0.9 % SODIUM CHLORIDE 1,000 ML IV STA (13:27)
[2025-04-22] MEDS ORDERED: ONDANSETRON HCL 2 MG/ML VIAL IV STA (13:27)
[2025-04-22] MEDS ORDERED: FAMOTIDINE/PF 20 MG/2 ML VIAL ONE (16:04)
[2025-04-22] MEDS ORDERED: ONDANSETRON HCL 2 MG/ML VIAL ONE (16:04)
[2025-04-22 16:50] LABS: BASO % 0.1 % (0.1-1.2); EOS # 0.00 (0.04-0.54); EOS % 0.0 % (0.7-7.0); LYMPH # 0.47 (1.18-3.74); LYMPH % 6.0 % (19.3-53.1); MEAN PLATELET VOLUME 10.80 fl (9.4-12.4); MONO # 0.39 (0.24-0.82); MONO % 4.9 % (4.7-12.5); NEUT # 6.99 (1.56-6.13); NEUT % 88.7 % (34.0-71.1)
[2025-04-22 16:51] LABS: ERYTHROCYTE SEDIMENTATION RATE 32 mm/hr (0-30); RED CELL DISTRIBUTION WIDTH 17.0 % (11.6-14.4)
[2025-04-22 17:04] LABS: INR 1.08
[2025-04-22 17:08] LABS: ALT/SGPT 21.0 U/L (12-78); AST/SGOT 31.0 U/L (15-37); BILIRUBIN TOTAL 1.59 mg/dL (0.3-1.2); BUN CREA RATIO 17.0 (7.0-25.0); CREATININE SERUM 1.2 mg/dL (0.55-1.02); GFR 42.9; GLOBULINA 4.4 G/DL (2.4-3.5); GLUCOSE FASTING 147.0 mg/dL (65-100); OSMOLALITY SERUM 292.0 MOSM/KG (275-295)
[2025-04-22] MEDS ORDERED: ONDANSETRON HCL 2 MG/ML VIAL IV ONE (18:45)
[2025-04-22] MEDS ORDERED: MECLIZINE HCL 25 MG TABLET PO ONE ×2 (19:30→19:36)
[2025-04-22] MEDS ORDERED: METOCLOPRAMIDE HCL 5 MG/ML VIAL IV ONE (21:30)
[2025-04-22] MEDS ORDERED: METOCLOPRAMIDE HCL 5 MG/ML VIAL ONE (21:49)
[2025-04-22 23:07] LABS: URINE APPEARANCE Clear; URINE BILIRRUBIN Small (NEGATIVE); URINE BLOOD Negative; URINE COLOR Dark Yellow; URINE GLUCOSE Negative (NEGATIVE); URINE KETONE Trace (NEGATIVE); URINE LEUKOCYTE Trace; URINE NITRATE Negative; URINE UROBILINOGEN 1.0 E.U./dl
[2025-04-22 23:10] LABS: URINE BACTERIA 73.1 uL (0.0-1933); URINE CAST 7.62 uL (0.0-1.40); URINE EPITHELIAL CELLS 17.9 uL (0.0-38.8); URINE RBC 4.9 uL (0.0-20.8); URINE WBC 10.2 uL (0.0-23.2)
[2025-04-22] MEDS ORDERED: 0.9 % SODIUM CHLORIDE 1,000 ML IV ONE (23:15)
[2025-04-22 23:18] LABS: URINE PROTEIN 100 (NEGATIVE)
[2025-04-23] MEDS ORDERED: ONDANSETRON HCL 4 MG in 0.9 % SODIUM CHLORIDE 50 ML IV PRN (00:15)
[2025-04-23] MEDS ORDERED: ACETAMINOPHEN 325 MG TABLET PO PRN (00:15)
[2025-04-23] MEDS ORDERED: 0.9 % SODIUM CHLORIDE 1,000 ML IV SCH (00:15)
[2025-04-23 03:25] VITALS: BP 130/75; O2SAT 97
[2025-04-23 06:44] VITALS: BP 110/72; O2SAT 95
[2025-04-23] MEDS ORDERED: PATIENTS OWN MEDICATION (MEDICAMENTO EN PISO) PO SCH (09:00)
[2025-04-23] MEDS ORDERED: AMIODARONE HCL 200 MG TABLET PO SCH (09:00)
[2025-04-23] MEDS ORDERED: ENOXAPARIN SODIUM 30 MG/0.3 ML SYRINGE SUBCUTANEO SCH (09:00)
[2025-04-23 10:14] VITALS: BP 124/67; O2SAT 97
[2025-04-23 17:26] VITALS: BP 128/81
[2025-04-23 17:29] VITALS: BP 102/72
[2025-04-24 01:47] VITALS: BP 112/78; O2SAT 93
[2025-04-24 07:31] LABS: BUN CREA RATIO 19.0 (7.0-25.0); CREATININE SERUM 1.9 mg/dL (0.55-1.02); GFR 25.18; GLUCOSE FASTING 111.0 mg/dL (65-100); OSMOLALITY SERUM 294.0 MOSM/KG (275-295)
[2025-04-24 09:50] VITALS: BP 143/90; O2SAT 96
[2025-04-24 21:24] VITALS: BP 122/79; O2SAT 95
[2025-04-25 03:07] VITALS: BP 143/90; O2SAT 95
[2025-04-25 07:42] LABS: BUN CREA RATIO 24.0 (7.0-25.0); CREATININE SERUM 1.73 mg/dL (0.55-1.02); GFR 28.06; GLUCOSE FASTING 125.0 mg/dL (65-100); OSMOLALITY SERUM 297.0 MOSM/KG (275-295)
[2025-04-25 10:33] VITALS: BP 135/82; O2SAT 98
[2025-04-25 16:10] VITALS: O2SAT 98
[2025-04-25 18:24] VITALS: BP 143/85; O2SAT 100
[2025-04-25 19:29] VITALS: O2SAT 99
[2025-04-25] MEDS ORDERED: APIXABAN 5 MG TABLET PO SCH (21:00)
[2025-04-26] VITALS: O2SAT 93
[2025-04-26 02:45] VITALS: BP 133/72; O2SAT 99
[2025-04-26 04:00] VITALS: O2SAT 93
[2025-04-26 09:17] VITALS: O2SAT 96
[2025-04-26 11:06] VITALS: BP 133/77; O2SAT 98
[2025-04-26 13:25] VITALS: O2SAT 97
== END 2025-04-26 16:22 | disposition home or self-care (01) | DRG 641 ==
LOC: ER 13:08 → MEDJ 04-23 00:04
PROVIDERS: Physician Assistant Medical; ADMIT Student in an Organized Health Care Education/Training Program; ATTEND Student in an Organized Health Care Education/Training Program
PROC: BW21ZZZ Computerized Tomography (CT Scan) of Abdomen and Pelvis (ICD-10-PCS; principal; 2025-04-22)
PROC: BW28ZZZ Computerized Tomography (CT Scan) of Head (ICD-10-PCS; 2025-04-22)
PROC: B030ZZZ Magnetic Resonance Imaging (MRI) of Brain (ICD-10-PCS; 2025-04-23)
PROC: B246ZZZ Ultrasonography of Right and Left Heart (ICD-10-PCS; 2025-04-23)
PROC: 4A12X4Z Monitoring of Cardiac Electrical Activity, External Approach (ICD-10-PCS; 2025-04-23)
DX: E86.0 Dehydration (principal); N17.8 Other acute kidney failure; I50.20 Unspecified systolic (congestive) heart failure; K52.9 Noninfective gastroenteritis and colitis, unspecified; I11.0 Hypertensive heart disease with heart failure; I48.0 Paroxysmal atrial fibrillation
CPT/HCPCS: 70551

== ENCOUNTER 2025-05-06 15:58 | Inpatient (IN) | payer OTHER ==
[~2025-05-06] VITALS: Ht 165.1 cm; Wt 68.0 kg
--- NOTE | 2025-05-06 16:29 | NUR ---
PACIENTE ALERTA Y ORIENTADA X3 TRAIDA EN AMBULANCIA JUNTO A PARAMEDICOS. PACIENTE REFIERE COMENZAR CON HINCHAZON EN AMBAS PIERNAS Y SOB DESDE HACE UNOS AQUINO. SE REALIZA EKG Y SE PRESENTA A DR. JONES QUIEN REFIERE QUE SE COLOQUE A PACIENTE EN AREA DE CRITICO. SE NIRMAL S/V. SE CONECTA A PACIENTE A MONITOR CARDIACO Y OXIMETRIA CONTINUA.
--- NOTE | 2025-05-06 17:15 | NUR ---
SE EDUCA A PACIENTE SOBRE TRATAMIENTO MEDICO SOLICITADO POR MD EN TURNO. AL MOMENTO SE REALIZA COLECCION DE MUESTRAS SERA ORENDEN MEDICA Y ADMINISTRACION DE MEDICAMENTOS BAJO MEDIDAS ASEPTICAS. SE REALIZA INSERCION DE SONDA URINARIA BAJO MEDIDAS ASEPTICAS CON EGRESO COLOR AMARILLO OSCURO.
[2025-05-06 17:18] LABS: BASO % 0.1 % (0.1-1.2); EOS # 0.00 (0.04-0.54); EOS % 0.0 % (0.7-7.0); LYMPH # 0.28 (1.18-3.74); LYMPH % 2.3 % (19.3-53.1); MEAN PLATELET VOLUME 11.30 fl (9.4-12.4); MONO # 0.99 (0.24-0.82); MONO % 8.1 % (4.7-12.5); NEUT # 10.84 (1.56-6.13); NEUT % 89.1 % (34.0-71.1); RED CELL DISTRIBUTION WIDTH 18.4 % (11.6-14.4)
[2025-05-06] MEDS ORDERED: IPRATROPIUM BROMIDE 0.5 MG/2.5 ML AMPUL.NEB IH SCH (17:30)
[2025-05-06 17:33] LABS: URINE APPEARANCE Clear; URINE BILIRRUBIN Small (NEGATIVE); URINE BLOOD Negative; URINE COLOR Dark Yellow; URINE GLUCOSE Negative (NEGATIVE); URINE KETONE Negative (NEGATIVE); URINE LEUKOCYTE Trace; URINE NITRATE Negative; URINE UROBILINOGEN 2.0 E.U./dl
[2025-05-06 17:38] LABS: URINE BACTERIA 76.8 uL (0.0-1933); URINE EPITHELIAL CELLS 14.7 uL (0.0-38.8); URINE RBC 20.8 uL (0.0-20.8); URINE WBC 8.3 uL (0.0-23.2)
[2025-05-06] MEDS ORDERED: SODIUM CHLORIDE 0.45 % 1,000 ML IV STA (17:45)
[2025-05-06 17:54] LABS: ALT/SGPT 45.0 U/L (12-78); AST/SGOT 40.0 U/L (15-37); BILIRUBIN TOTAL 3.43 mg/dL (0.3-1.2); BUN CREA RATIO 37.0 (7.0-25.0); CREATININE SERUM 1.35 mg/dL (0.55-1.02); GFR 37.36; GLOBULINA 4.1 G/DL (2.4-3.5); GLUCOSE FASTING 132.0 mg/dL (65-100); OSMOLALITY SERUM 287.0 MOSM/KG (275-295); PHOSPHOKINASE CREATININE 46.0 U/L (26-192)
[2025-05-06 18:15] LABS: COVID-19 AG NEGATIVE (NEGATIVE)
[2025-05-06] MEDS ORDERED: SODIUM POLYSTYRENE SULFONATE 15 G/4 TSP TSP PO STA (18:32)
[2025-05-06] MEDS ORDERED: NITROGLYCERIN IN 5 % DEXTROSE 50 MG/250 ML BOTTLE IV STA (18:32)
[2025-05-06] MEDS ORDERED: CALCIUM GLUCONATE 100 MG/ML VIAL IV STA (18:36)
[2025-05-06] MEDS ORDERED: INSULIN REGULAR, HUMAN 1,000 UNIT/10 ML UNITS IV STA (18:37)
[2025-05-06] MEDS ORDERED: DEXTROSE 50 % IN WATER 0.5 G/ML VIAL IV STA (18:37)
[2025-05-06 18:45] LABS: URINE CAST > 21.83 uL (0.0-1.40); URINE PROTEIN 100 (NEGATIVE); URINE YEAST NEGATIVE /hpf
[2025-05-06] MEDS ORDERED: DEXTROSE 50 % IN WATER 0.5 G/ML DISP.SYRIN IV PRN (23:00)
[2025-05-06] MEDS ORDERED: INSULIN LISPRO 1,000 UNIT/10 ML UNITS SUBCUTANEO PRN (23:00)
[2025-05-07] VITALS (15 sets, daily range): BP systolic 105–134; BP diastolic 64–84; O2SAT 99–100
[2025-05-07] MEDS ORDERED: NITROGLYCERIN IN 5 % DEXTROSE 250 ML IV SCH (01:00)
[2025-05-07 06:47] LABS: BASO % 0.0 % (0.1-1.2); EOS # 0.00 (0.04-0.54); EOS % 0.0 % (0.7-7.0); LYMPH # 0.38 (1.18-3.74); LYMPH % 3.4 % (19.3-53.1); MEAN PLATELET VOLUME 11.20 fl (9.4-12.4); MONO # 0.60 (0.24-0.82); MONO % 5.4 % (4.7-12.5); NEUT # 10.00 (1.56-6.13); NEUT % 90.6 % (34.0-71.1); RED CELL DISTRIBUTION WIDTH 17.7 % (11.6-14.4)
[2025-05-07 07:04] LABS: BUN CREA RATIO 43.0 (7.0-25.0); CREATININE SERUM 1.15 mg/dL (0.55-1.02); GFR 44.95; GLUCOSE FASTING 77.0 mg/dL (65-100); OSMOLALITY SERUM 293.0 MOSM/KG (275-295)
[2025-05-07 07:47] LABS: INR 1.31
[2025-05-08] VITALS (9 sets, daily range): BP systolic 104–120; BP diastolic 62–66; O2SAT 86–100
[2025-05-09] VITALS (9 sets, daily range): BP systolic 113–120; BP diastolic 67–71; O2SAT 98–100
[2025-05-09] MEDS ORDERED: LISINOPRIL 2.5 MG TABLET PO SCH (09:00)
[2025-05-09] MEDS ORDERED: METOPROLOL SUCCINATE 50 MG TAB.SR.24H PO SCH (09:00)
[2025-05-09 11:34] LABS: BUN CREA RATIO 37.0 (7.0-25.0); CREATININE SERUM 0.93 mg/dL (0.55-1.02); GFR 57.44; GLUCOSE FASTING 105.0 mg/dL (65-100); OSMOLALITY SERUM 289.0 MOSM/KG (275-295)
[2025-05-09] MEDS ORDERED: GUAIFENESIN 200 MG/10 ML BLIST.PACK PO SCH (12:00)
[2025-05-09] MEDS ORDERED: IPRATROPIUM BROMIDE 0.5 MG/2.5 ML AMPUL.NEB IH SCH (17:00)
[2025-05-10] VITALS (9 sets, daily range): BP systolic 101–125; BP diastolic 61–70; O2SAT 97–100
[2025-05-10] MEDS ORDERED: ENOXAPARIN SODIUM 40 MG/0.4 ML SYRINGE SUBCUTANEO SCH (09:00)
[2025-05-11] VITALS (9 sets, daily range): BP systolic 109–125; BP diastolic 63–80; O2SAT 90–99
[2025-05-11] MEDS ORDERED: SENNOSIDES 1 TAB TABLET PO PRN (06:30)
[2025-05-11] MEDS ORDERED: CEFTRIAXONE SODIUM 2,000 MG in 0.9 % SODIUM CHLORIDE 100 ML IV SCH (09:00)
[2025-05-11] MEDS ORDERED: AZITHROMYCIN 500 MG VIAL IV SCH (17:00)
[2025-05-11] MEDS ORDERED: AZITHROMYCIN 500 MG VIAL IV ONE (18:06)
[2025-05-12] VITALS (8 sets, daily range): BP systolic 90–120; BP diastolic 50–78; O2SAT 98–100
[2025-05-12] MEDS ORDERED: MAGNESIUM HYDROXIDE 30 ML BLIST.PACK PO NR (10:15)
[2025-05-12] MEDS ORDERED: LACTULOSE 20 G/30 ML BLIST.PACK PO NR (10:15)
[2025-05-12 12:12] LABS: BASO % 0.1 % (0.1-1.2); EOS # 0.03 (0.04-0.54); EOS % 0.4 % (0.7-7.0); LYMPH # 0.44 (1.18-3.74); LYMPH % 5.6 % (19.3-53.1); MEAN PLATELET VOLUME 11.20 fl (9.4-12.4); MONO # 0.56 (0.24-0.82); MONO % 7.1 % (4.7-12.5); NEUT # 6.77 (1.56-6.13); NEUT % 86.2 % (34.0-71.1); RED CELL DISTRIBUTION WIDTH 18.5 % (11.6-14.4)
[2025-05-12 12:38] LABS: ALT/SGPT 27.0 U/L (12-78); AST/SGOT 27.0 U/L (15-37); BILIRUBIN TOTAL 1.57 mg/dL (0.3-1.2); BUN CREA RATIO 25.0 (7.0-25.0); CREATININE SERUM 0.84 mg/dL (0.55-1.02); GFR 64.59; GLOBULINA 3.9 G/DL (2.4-3.5); GLUCOSE FASTING 121.0 mg/dL (65-100); OSMOLALITY SERUM 285.0 MOSM/KG (275-295)
[2025-05-12] MEDS ORDERED: MEROPENEM 500 MG/VIAL VIAL IV SCH (13:00)
[2025-05-12] MEDS ORDERED: AZITHROMYCIN 500 MG VIAL IV ONE ×2 (15:57→17:19)
[2025-05-13] VITALS (9 sets, daily range): BP systolic 108–121; BP diastolic 58–66; O2SAT 97–100
[2025-05-13] MEDS ORDERED: BUMETANIDE 2.5 MG/10 ML VIAL IV SCH (09:00)
[2025-05-13] MEDS ORDERED: EMOLLIENTS 6 OZ BOTTLE TOP ONE (13:00)
[2025-05-13] MEDS ORDERED: AZITHROMYCIN 500 MG VIAL IV ONE (16:02)
[2025-05-14] VITALS (9 sets, daily range): BP systolic 107–133; BP diastolic 63–71; O2SAT 97–100
[2025-05-14] MEDS ORDERED: POLYETHYLENE GLYCOL 3350 17 GM BLIST.PACK PO NR (11:00)
[2025-05-14 17:32] LABS: BUN CREA RATIO 27.0 (7.0-25.0); CREATININE SERUM 0.73 mg/dL (0.55-1.02); GFR 75.95; GLUCOSE FASTING 143.0 mg/dL (65-100); OSMOLALITY SERUM 283.0 MOSM/KG (275-295)
[2025-05-14] MEDS ORDERED: CEFEPIME HCL 2,000 MG in 0.9 % SODIUM CHLORIDE 100 ML IV SCH (21:00)
[2025-05-14] MEDS ORDERED: SPIRONOLACTONE 25 MG TABLET PO SCH (21:45)
[2025-05-15] VITALS (7 sets, daily range): BP systolic 116–130; BP diastolic 66–72; O2SAT 96–100
[2025-05-15 07:57] LABS: BUN CREA RATIO 26.0 (7.0-25.0); CREATININE SERUM 0.77 mg/dL (0.55-1.02); GFR 71.42; GLUCOSE FASTING 85.0 mg/dL (65-100); OSMOLALITY SERUM 278.0 MOSM/KG (275-295)
[2025-05-15] MEDS ORDERED: POLYETHYLENE GLYCOL 3350 17 GM BLIST.PACK PO SCH (09:00)
[2025-05-16] VITALS (9 sets, daily range): BP systolic 109–126; BP diastolic 63–70; O2SAT 90–100
[2025-05-16] MEDS ORDERED: AMINO ACIDS/PROTEIN HYDROLYS 30 ML BLIST.PACK PO SCH (17:00)
[2025-05-16 21:11] LABS: MONONUCLEAR 74.4 %; POLYMORPHONUCLEAR 25.6 %
[2025-05-16 21:34] LABS: GLU PLEURAL FLUID 128.0 mg/dl; LDH PLEURAL FLUID 79.0 U/L; TP PLEURAL FLUID 1.7 g/dl
[2025-05-17] VITALS (7 sets, daily range): BP systolic 90–103; BP diastolic 52–64; O2SAT 97–100
[2025-05-18] VITALS (9 sets, daily range): BP systolic 92–117; BP diastolic 50–66; O2SAT 97–100
[2025-05-18] MEDS ORDERED: LEVALBUTEROL HCL 0.63 MG/3 ML SOLUTION IH SCH (09:19)
[2025-05-18] MEDS ORDERED: IPRATROPIUM BROMIDE 0.5 MG/2.5 ML AMPUL.NEB IH SCH (09:20)
[2025-05-19] VITALS: BP 111/64; O2SAT 100
[2025-05-19 01:24] VITALS: O2SAT 100
[2025-05-19 05:09] VITALS: O2SAT 100
[2025-05-19 08:46] VITALS: BP 119/64; O2SAT 99
[2025-05-19 09:42] VITALS: O2SAT 100
== END 2025-05-19 15:53 | disposition home or self-care (01) | DRG 291 ==
LOC: ER → MEDI 22:50 → ICU-2 22:50 → MEDI 05-07 15:17
PROVIDERS: General Practice; Internal Medicine Infectious Disease; Radiology Vascular & Interventional Radiology; ADMIT Student in an Organized Health Care Education/Training Program; ATTEND Student in an Organized Health Care Education/Training Program
PROC: B24BYZZ Ultrasonography of Heart with Aorta using Other Contrast (ICD-10-PCS; 2025-05-06)
PROC: 4A12X4Z Monitoring of Cardiac Electrical Activity, External Approach (ICD-10-PCS; 2025-05-07)
PROC: 0HB6XZZ Excision of Back Skin, External Approach (ICD-10-PCS; principal; 2025-05-09)
PROC: BW24ZZZ Computerized Tomography (CT Scan) of Chest and Abdomen (ICD-10-PCS; 2025-05-09)
PROC: 02HV33Z Insertion of Infusion Device into Superior Vena Cava, Percutaneous Approach (ICD-10-PCS; 2025-05-09)
PROC: BH4BZZZ Ultrasonography of Chest Wall (ICD-10-PCS; 2025-05-12)
PROC: 0W993ZZ Drainage of Right Pleural Cavity, Percutaneous Approach (ICD-10-PCS; 2025-05-16)
PROC: 0W9B3ZZ Drainage of Left Pleural Cavity, Percutaneous Approach (ICD-10-PCS; 2025-05-17)
DX: I50.9 Heart failure, unspecified (principal); J18.9 Pneumonia, unspecified organism; J90 Pleural effusion, not elsewhere classified; I50.20 Unspecified systolic (congestive) heart failure; I34.0 Nonrheumatic mitral (valve) insufficiency; L89.152 Pressure ulcer of sacral region, stage 2; N18.9 Chronic kidney disease, unspecified